=== PATIENT | male | born 1940 | race Two or more races ===

== ENCOUNTER 2018-03-29 07:43 | Outpatient (CLI) | payer OTHER | END 2018-03-29 09:02 | disposition home or self-care (01) | LOC: LAB 07:43 | DX: D64.89 Other specified anemias (principal); D68.8 Other specified coagulation defects; N39.0 Urinary tract infection, site not specified; E88.89 Other specified metabolic disorders; A49.02 Methicillin resistant Staphylococcus aureus infection, unspecified site; Z76.89 Persons encountering health services in other specified circumstances; I49.8 Other specified cardiac arrhythmias ==

== ENCOUNTER → 2018-04-20 | Day surgery (SDC) | payer OTHER ==
[~2018-04-20] MED LIST: CENTRUM ADULTS1 EACH PO; FORTAMET1000 MG PO; GLIMEPIRIDE1 MG PO; HYZA PO; ZOCOR PO
== END | disposition home or self-care (01) ==
LOC: CIR.AMB 05:45
DX: M75.121 Complete rotator cuff tear or rupture of right shoulder, not specified as traumatic (principal)

== ENCOUNTER 2019-03-22 08:17 | Outpatient (CLI) | payer OTHER | END 2019-03-22 08:52 | disposition home or self-care (01) | LOC: EDBD 08:17 → LAB 08:17 | DX: Z76.89 Persons encountering health services in other specified circumstances (principal); D64.89 Other specified anemias; E88.89 Other specified metabolic disorders; D68.8 Other specified coagulation defects; N39.0 Urinary tract infection, site not specified; Z22.322 Carrier or suspected carrier of Methicillin resistant Staphylococcus aureus; I49.8 Other specified cardiac arrhythmias ==

== ENCOUNTER 2019-04-01 05:05 | Day surgery (SDC) | payer OTHER | END 2019-04-01 14:20 | disposition home or self-care (01) | LOC: CIR.AMB 05:05 → EDBD 08:00 → CIR.AMB 14:20 | DX: M75.01 Adhesive capsulitis of right shoulder (principal); M24.511 Contracture, right shoulder; M20.091 Other deformity of right finger(s); M24.541 Contracture, right hand ==